=== PATIENT | male | born 1970 | race Caucasian/White ===

== ENCOUNTER 2020-07-12 23:45 | Emergency (ER) | payer BC ==
--- NOTE | 2020-07-13 00:14 | EDM.PDOC ---
ED HPI GENERAL MEDICAL PROBLEM - General Chief Complaint: Upper Extremity Injury/Pain Stated Complaint: Fall, wrist pain Time Seen by Provider: 07/13/20 00:00 Source of Information: Reports: Patient History Limitations: Reports: No Limitations - History of Present Illness INITIAL COMMENTS - FREE TEXT/NARRATIVE: Pt. presents to ER with complaints of pain to his L wrist. Pt. states that he was walking around his car and tripped, landing on an outstretched L hand. Pt. states that he is not complaining of pain to his wrist. He states that the ROM to the joint is decreased. He states that he is not able to make a complete fist without increased discomfort. Denies numbness/tingling in the distal portion of the fingers. CMS is otherwise intact. Pt. denies any injury elsewhere, other than what is associated with his L wrist. Onset: Today - Related Data Allergies Allergy/AdvReac Type Severity Reaction Status Date / Time No Known Allergies Allergy Verified 12/11/14 13:15 Home Meds: Home Meds Ibuprofen [Motrin] 200 mg PO DAILY PRN 11/10/14 [History] Multivitamin [Multi Vitamin Daily] 1 tab PO DAILY 11/10/14 [History] Review of Systems - Review of Systems Review Of Systems: Comprehensive ROS is negative, except as noted in HPI. Musculoskeletal: Reports: Arm Pain, Joint Pain, Other (injury to L wrist) ED EXAM, GENERAL - Physical Exam Exam: See Below Exam Limited By: No Limitations General Appearance: Alert, WD/WN, No Apparent Distress Extremities: Other (edema, ecchymosis to L wrist/palm of hand. CMS intact. No obvious crepitus. No obvious deformity on gross examination.) Neurological: Alert, Oriented, CN II-XII Intact, Normal Cognition, Normal Gait, No Motor/Sensory Deficits Course - Orders/Labs/Meds Orders: Active Orders 24 hr Category Date Time Status Wrist Comp Min 3V Lt [CR] Stat Exams 07/13/20 00:03 Taken Departure - Departure Time of Disposition: 01:05 Disposition: Home, Self-Care 01 Clinical Impression: Left wrist sprain - Discharge Information Instructions: Wrist Pain, Adult Forms: ED Department Discharge, ED Return to Work/School Form Additional Instructions: Home to rest. Tylenol and ibuprofen for discomfort. Use CRISTINE wrap as needed. Repeat radiographs in 7-10 days if still having discomfort. - My Orders Last 24 Hours: My Active Orders 07/13/20 00:03 Wrist Comp Min 3V Lt [CR] Stat - Assessment/Plan Last 24 Hours: My Active Orders 07/13/20 00:03 Wrist Comp Min 3V Lt [CR] Stat
[2020-07-13 02:46] VITALS: BP 103/73; PULSE 90
--- NOTE | 2020-07-13 10:23 | CR ---
[id number] RAD/RAD Wrist Left 3V Min EXAM: 3 VIEWS LEFT HAND. INDICATION: FELL ON OUTSTRETCHED HAND COMPARISON: None. DISCUSSION: No fracture, dislocation or other acute osseous abnormality. Mild degenerative changes seen throughout the left hand. No radiodense foreign bodies. IMPRESSION: 1. No acute osseous abnormalities. Darrin Andrea DO 07/13/20 1021 Thank you for allowing us to participate in the care of your patient.
== END 2020-07-13 01:00 | disposition home or self-care (01) ==
LOC: VM.ED 23:45
DX: S63.502A Unspecified sprain of left wrist, initial encounter (principal); W01.0XXA Fall on same level from slipping, tripping and stumbling without subsequent striking against object, initial encounter
CPT/HCPCS: 73110-LT; 99283